=== PATIENT | female | born 1990 | race Caucasian/White ===

== ENCOUNTER 2016-07-30 12:40 | Outpatient (CLI) | payer OTHER ==
[~2016-07-30] VITALS: Ht 154.9 cm; Wt 71.7 kg
[2016-07-30 13:03] VITALS: BP 132/83
[2016-07-30] MEDS ORDERED: PREN1TAB86 PO (13:29)
[2016-07-30 13:30] VITALS: BP 110/75
--- NOTE | 2016-07-31 10:13 | Physician Query-Final Dx ---
PADMA DOMINGUEZ 07/31/16 1013: Clinic Account Progress/Dx Physician Query: Please give diagnosis Date of Service July 30, 2016 at 12:40 ALEJANDRINA GREGORY DO 07/31/16 1204: Clinic Account Progress/Dx DIAGNOSIS: Diagnosis 39 week IUP Vaginal discharge PADMA DOMINGUEZ July 31, 2016 10:13 ALEJANDRINA GREGORY DO July 31, 2016 12:04
[2016-07-31] MEDS ORDERED: ACET1TAB43 PO (18:25)
[2016-07-31] MEDS ORDERED: IBUP-1773 PO (18:25)
[2016-07-31] MEDS ORDERED: FERR-74 PO (18:25)
[2016-07-31] MEDS ORDERED: DOCU100C37 PO (18:25)
== END 2016-07-30 14:00 | disposition home or self-care (01) ==
LOC: WSo 12:40 → LDRP 12:41 → WSo 14:00
PROVIDERS: ATTEND Obstetrics & Gynecology
DX: N89.8 Other specified noninflammatory disorders of vagina (principal); Z3A.39 39 weeks gestation of pregnancy
CPT/HCPCS: 99213

== ENCOUNTER 2016-07-31 06:16 | Inpatient (IN) | payer OTHER ==
[~2016-07-31] VITALS: Ht 154.9 cm; Wt 71.7 kg
[2016-07-31] VITALS (41 sets, daily range): BP systolic 95–151; BP diastolic 52–93
[~2016-07-31 06:16] MED LIST: PREN1TAB86 PO
[2016-07-31] MEDS: CATHETER FLUSH 10 ML SYR IV SCH ×2 (07:30→10:30)
[2016-07-31] MEDS: D5 LR IV SOLUTION 1,000 ML IV SCH ×3 (07:30→23:52)
[2016-07-31] MEDS ORDERED: LIDOCAINE/EPI 1%-1:200,000 (XYLOCAINE) 30 ML VIAL INJ PRN (07:45)
[2016-07-31 08:07] LABS: BASOPHILS % (AUTO) 0 % (0-10); EOSINOPHILS # (AUTO) 0.1 10^3/uL (0.0-0.3); EOSINOPHILS % (AUTO) 0 % (0-10); LYMPHOCYTES # (AUTO) 1.9 X 10^3 (1.0-4.0); LYMPHOCYTES % (AUTO) 10 % (12-44); MEAN CORPUSCULAR HEMOGLOBIN 30 PG (25-34); MEAN CORPUSCULAR HGB CONC 34 G/DL (32-36); MEAN CORPUSCULAR VOLUME 88 FL (80-99); MEAN PLATELET VOLUME 11.6 FL (7.4-10.4); MONOCYTES # (AUTO) 0.9 X 10^3 (0.0-1.0); MONOCYTES % (AUTO) 5 % (0-12); NEUTROPHILS # (AUTO) 16.5 X 10^3 (1.8-7.8); NEUTROPHILS % (AUTO) 85 % (42-75); PLATELET COUNT 206 10^3/uL (130-400); RED BLOOD COUNT 4.33 10^6/uL (4.35-5.85); RED CELL DISTRIBUTION WIDTH 13.8 % (10.0-14.5); WHITE BLOOD COUNT 19.3 10^3/uL (4.3-11.0)
[2016-07-31 08:40] LABS: BAND NEUTROPHILS 4 %; BASOPHILS % (MANUAL) 0 %; EOSINOPHILS % (MANUAL) 0 %; LYMPHOCYTES % (MANUAL) 14 %; NEUTROPHILS % (MANUAL) 76 %
--- NOTE | 2016-07-31 08:43 | History & Physical-OB ---
OB - Chief Complaint & HPI Date Date of Admission: Date of Admission: July 31, 2016 at 07:10 Chief Complaint/History OB-Reason for Admission/Chief: Onset of Labor Hx : 1 Hx Para: 0 Expected Date of Delivery: July 31, 2016 Gestational Age in Weeks: 40 Admission Nurse Assessment Rev: Yes History of Labs A pos antibody neg RI RPR NR HIV NR HBsAg NR GC neg GBS neg Allergies and Home Medications Allergies Coded Allergies: No Known Drug Allergies (Unverified , 07/31/16) Home Medications Vit W-Ca,Fe,FA(<1 mg) 1 Each Tablet, 1 TAB PO DAILY, (Reported) OB - History Hx of Present Care: Yes Ultrasounds: Normal mid trimester US Obstetrical Complications: None Medical Complications: None Obstetrical History Hx : 1 Hx Para: 0 Delivery History Adverse Rxn to Tranfusion: No Patient Past Medical History n/a Social History/Family History HIV/AIDS: No Recent Infectious Disease Expo: No Sexually Transmitted Disease: No Alcohol Use: Denies Use Recreational Drug Use: No OB - Admission Exam Physical Exam Vitals: Vital Signs 07/31/16 06:37 Temp 98.2 Pulse 84 Resp 16 B/P (MAP) 122/79 O2 Delivery Room Air HEENT: NCAT Heart: Rhythm Normal Lungs: Clear Abdomen: Gravid Extremities: Normal Reflexes: Normal Cervical Dilatation: 4cm Effacement: 75% Station: -1 Membranes: Intact Heart Rate: 130's Accelerations: Accelerations Present Decelerations: No Decelerations Short Term Variability: Present Berry Planter Variability: Average (6-25) Contractions on Admission: 6-10 Minutes Apart Intensity: Moderate Labs Laboratory Tests Test 07/31/16 07:56 Range/Units White Blood Count 19.3 H 4.3-11.0 10^3/uL Red Blood Count 4.33 L 4.35-5.85 10^6/uL Hemoglobin 12.9 11.5-16.0 G/DL Hematocrit 38 35-52 % Mean Corpuscular Volume 88 80-99 FL Mean Corpuscular Hemoglobin 30 25-34 PG Mean Corpuscular Hemoglobin Concent 34 32-36 G/DL Red Cell Distribution Width 13.8 10.0-14.5 % Platelet Count 206 130-400 10^3/uL Mean Platelet Volume 11.6 H 7.4-10.4 FL Neutrophils (%) (Auto) 85 H 42-75 % Lymphocytes (%) (Auto) 10 L 12-44 % Monocytes (%) (Auto) 5 0-12 % Eosinophils (%) (Auto) 0 0-10 % Basophils (%) (Auto) 0 0-10 % Neutrophils # (Auto) 16.5 H 1.8-7.8 X 10^3 Lymphocytes # (Auto) 1.9 1.0-4.0 X 10^3 Monocytes # (Auto) 0.9 0.0-1.0 X 10^3 Eosinophils # (Auto) 0.1 0.0-0.3 10^3/uL Basophils # (Auto) 0.0 0.0-0.1 10^3/uL Neutrophils % (Manual) 76 % Lymphocytes % (Manual) 14 % Monocytes % (Manual) 6 % Eosinophils % (Manual) 0 % Basophils % (Manual) 0 % Band Neutrophils 4 % Blood Morphology Comment NORMAL OB - Assessment/Plan/Diagnosis Assessment Assessment: active labor Plan Plan: Expectant Management Discharge Diagnosis Diagnosis: 26 yo @ 40 weeks Active labor GBS neg ALEJANDRINA GREGORY DO July 31, 2016 08:43
[2016-07-31] MEDS ORDERED: LACTATED RINGERS 1,000 ML IV ONE ×2 (12:13→13:26)
[2016-07-31] MEDS ORDERED: HYDROmorphone (DILAUDID) 2 MG/ML VIAL IVP NR (12:15)
[2016-07-31] MEDS ORDERED: fentaNYL INJECTION 100 MCG/2 ML AMP ONE (12:19)
[2016-07-31] MEDS ORDERED: BUPIVACAINE 0.25% 30 ML (SENSORCAINE) VIAL ONE (12:19)
[2016-07-31] MEDS ORDERED: SUFENTA 0.6MCG/ML BUPIVA 0.125 100 ML ONE (12:20)
[2016-07-31] MEDS ORDERED: EPIDURAL (SUFENTA 0.6MCG/ML BUPIVA 0.125%) 100 ML BAG EPI SCH (13:30)
[2016-07-31] MEDS ORDERED: BUPIVACAINE 0.25% 30 ML (SENSORCAINE) VIAL INJ ONE (13:30)
[2016-07-31] MEDS ORDERED: NALOXONE 0.4 MG/ML 1 ML (NARCAN) VIAL IV PRN (13:30)
[2016-07-31] MEDS ORDERED: CATHETER FLUSH 10 ML SYR IV PRN (13:30)
[2016-07-31] MEDS ORDERED: diphenhydrAMINE 50 MG/ML INJ (BENADRYL) IV PRN (13:30)
[2016-07-31] MEDS ORDERED: ONDANSETRON 4 MG/2 ML (SDV) Z0FRAN IV PRN (13:30)
[2016-07-31] MEDS ORDERED: fentaNYL INJECTION 100 MCG/2 ML AMP INJ ONE (13:30)
[2016-07-31] MEDS ORDERED: OXYTOCIN/NORMAL SALINE 500 ML IV ONE (14:14)
[2016-07-31] MEDS ORDERED: OXYTOCIN/NORMAL SALINE 500 ML IV SCH (18:20)
--- NOTE | 2016-07-31 18:23 | Discharge Inst-Women's Service ---
Discharge Inst-Women's Serv Depart Medication/Instructions New, Converted or Re-Newed RX: RX on Chart Consults/Follow Up Additional Follow Up: Yes Orders/Referrals Dr. Gregory 6 weeks follow up Activity Activity: Activity as Tolerated Driving Instructions: No Driving for 1 Week NO SMOKING: NO SMOKING Nothing Inside Vagina: No Douching, No [place], No Tampons Diet Discharge Diet: No Restrictions Symptoms to Report to : Bleeding Excessive, Pain Increased, Fever Over 101 Degrees F, Vaginal Bleeding Increase, Questions/Concerns For Any Problems or Questions: Contact Your Physician Skin/Wound Care Bathing Instructions: Shower (x 2 weeks) ALEJANDRINA GREGORY DO July 31, 2016 18:23
[2016-07-31] MEDS ORDERED: ACET1TAB43 PO (18:25)
[2016-07-31] MEDS ORDERED: FERR-74 PO (18:25)
[2016-07-31] MEDS ORDERED: IBUP-1773 PO (18:25)
[2016-07-31] MEDS ORDERED: DOCU100C37 PO (18:25)
--- NOTE | 2016-07-31 18:28 | OB Labor & Delivery Record ---
L&D History Date of Service Date of Service: July 31, 2016 History Expected Date of Delivery: July 31, 2016 Gestational Age in Weeks: 40 Hx : 1 Hx Para: 0 Complications Events: Routine care Operative Indications (Cesarea: N/A-Vaginal Delivery Intrapartal Events: None L&D Stage1 Monitors and Tracing Monitor Mode: External Heart Rate: 135 Monitor Decelerations: None Station: 0 Agronomy Location Manager Variability: Average (6-10) Short Term Variability: Present Presentation: Vertex Vital Signs VS - Last 72 Hours, by Label 07/31/16 07/31/16 07/31/16 07/31/16 06:37 07:30 08:00 08:30 Temp 98.2 97.7 Pulse 84 98 96 94 Resp 16 18 18 18 B/P (MAP) 122/79 124/72 Pulse Ox 98 100 O2 Delivery Room Air Room Air Room Air Room Air 07/31/16 07/31/16 07/31/16 07/31/16 09:00 10:00 10:30 11:00 Temp 98.6 Pulse 100 78 92 96 Resp 18 18 18 18 B/P (MAP) 119/72 115/77 118/79 116/73 Pulse Ox 100 O2 Delivery Room Air Room Air Room Air Room Air 07/31/16 07/31/16 07/31/16 07/31/16 11:30 12:30 12:35 12:41 Temp 97.7 Pulse 101 100 83 113 Resp 18 18 18 18 B/P (MAP) 121/93 119/68 109/60 127/84 Pulse Ox 98 O2 Delivery Room Air Room Air Room Air Room Air 07/31/16 07/31/16 07/31/16 07/31/16 12:46 12:52 12:54 13:00 Temp 98.6 Pulse 111 114 104 96 Resp 18 18 18 18 B/P (MAP) 127/72 114/67 119/68 99/54 Pulse Ox 98 98 97 98 O2 Delivery Room Air Room Air Room Air Room Air 07/31/16 07/31/16 07/31/16 07/31/16 13:15 13:30 13:45 14:00 Pulse 93 81 77 75 Resp 18 18 18 18 B/P (MAP) 95/52 107/65 109/73 Pulse Ox 99 100 100 100 O2 Delivery Room Air Room Air Room Air Room Air 07/31/16 07/31/16 07/31/16 07/31/16 14:15 14:30 14:45 15:00 Temp 97.2 Pulse 82 78 88 91 Resp 18 18 18 18 B/P (MAP) 111/68 111/74 126/84 119/70 Pulse Ox 100 98 100 100 O2 Delivery Room Air Room Air Room Air Room Air 07/31/16 07/31/16 07/31/16 07/31/16 15:15 15:30 15:45 16:00 Temp 99.0 Pulse 88 95 97 97 Resp 18 18 18 18 B/P (MAP) 122/72 119/75 121/76 109/73 Pulse Ox 100 100 100 100 O2 Delivery Room Air Room Air Room Air Room Air 07/31/16 07/31/16 16:15 16:30 Temp 99.0 Pulse 86 109 Resp 18 18 B/P (MAP) 109/73 112/79 Pulse Ox 100 100 O2 Delivery Room Air Room Air Rupture of Membranes Amniotic Membrane Rupture Time: 1207 Amniotic Membrane Fluid Desc.: Clear Vaginal Bleeding Description: Normal Show Induction/Anesthesia Epidural Cath Placement - Time: 1252 Progress/Notes Patient progressed spontaneously to complete without augmentation L&D Stage2 Stage Two Stage II Date: July 31, 2016 Monitors and Tracing Monitor Mode: External Heart Rate: 135 Monitor Decelerations: None Agronomy Location Manager Variability: Average (6-10) Short Term Variability: Present Position: Right Occiput Anterior Presentation: Vertex Cord Descript/Complications Cord Vessel Description: 3 Vessels Delivery Type Delivery Method: Spontaneous Vaginal Anterior Shoulder: Right Episiotomy/Perineal Laceration Laceraction(s)/Extensions: Yes Episiotomy Description: Right Mediolateral Location Modifier: Right Degree (describe repair) RML repaired using 3-0 and 2-0 vicryl Condition of Delivery 1 minute Comment: 8 5 minute Comment: 9 Notes Live female infant weight 6lbs 13 oz Condition of Condition of : Living Exam: No Observed Abnormalities Resuscitation Resuscitation: N/A - Spontaneous Resp L&D Stage3 Stage Three Stage III Date: July 31, 2016 Pictocin Pitocin Administration Comment: 30 mu wide open after delivery of placenta Placenta Delivery Placenta Delivery: Spontaneous Delivery Summary Summary blood loss >1000ml: No Vaginal blood loss >500ml: No 350 mL Attending at delivery: Alejandrina Gregory DO Condition of Delivery Examined: Cervix Examined, Uterus Explored Post Hemorrhage: No Condition of Mother stable Condition of Infant (s) stable ALEJANDRINA GREGORY DO July 31, 2016 18:28
[2016-07-31] MEDS ORDERED: TETANUS,DIPTH,PERTUSS P/F (BOOSTRIX) 0.5 ML VIAL IM ONE (18:30)
[2016-07-31] MEDS ORDERED: BENZOCAINE/MENTHOL (DERMOPLAST) 56 ML CAN TP PRN (18:30)
[2016-07-31] MEDS ORDERED: APAP 300 MG/CODEINE 30 MG (TYLENOL #3) TAB PO PRN (18:30)
[2016-07-31] MEDS ORDERED: WITCH HAZEL(TUCKS) 40 EA JAR TOP PRN (18:30)
[2016-07-31] MEDS ORDERED: DIBUCAINE (NUPERCAINAL) 1% OINT 30 GM TOP PRN (18:30)
[2016-07-31] MEDS ORDERED: MEASLES,MUMPS,RUBELLA 1 EA INJ SQ ONE (18:30)
[2016-07-31] MEDS: DOCUSATE SODIUM 100 MG (COLACE) CAP PO SCH (22:07)
[2016-07-31] MEDS: IBUPROFEN 600 MG (MOTRIN) TAB PO SCH ×2 (22:07→23:52)
[2016-08-01] MEDS: IBUPROFEN 600 MG (MOTRIN) TAB PO SCH ×3 (03:51→18:00)
[2016-08-01] MEDS: CATHETER FLUSH 10 ML SYR IV SCH ×4 (03:54→14:15)
[2016-08-01 04:28] VITALS: BP 110/78
[2016-08-01 06:03] LABS: BASOPHILS % (AUTO) 0 % (0-10); EOSINOPHILS % (AUTO) 0 % (0-10); LYMPHOCYTES # (AUTO) 2.3 X 10^3 (1.0-4.0); LYMPHOCYTES % (AUTO) 12 % (12-44); MEAN CORPUSCULAR HEMOGLOBIN 30 PG (25-34); MEAN CORPUSCULAR HGB CONC 34 G/DL (32-36); MEAN CORPUSCULAR VOLUME 90 FL (80-99); MEAN PLATELET VOLUME 11.4 FL (7.4-10.4); MONOCYTES # (AUTO) 1.3 X 10^3 (0.0-1.0); MONOCYTES % (AUTO) 7 % (0-12); NEUTROPHILS # (AUTO) 15.1 X 10^3 (1.8-7.8); NEUTROPHILS % (AUTO) 80 % (42-75); PLATELET COUNT 173 10^3/uL (130-400); RED BLOOD COUNT 2.85 10^6/uL (4.35-5.85); RED CELL DISTRIBUTION WIDTH 13.7 % (10.0-14.5); WHITE BLOOD COUNT 18.8 10^3/uL (4.3-11.0)
[2016-08-01 08:00] VITALS: BP 102/68
[2016-08-01] MEDS ORDERED: FERROUS SULF 325 MG (IRON) TAB PO SCH (09:00)
[2016-08-01] MEDS: PRENATAL VITAMIN 1 EA TAB PO SCH (09:16)
[2016-08-01] MEDS: DOCUSATE SODIUM 100 MG (COLACE) CAP PO SCH ×2 (09:17→21:12)
--- NOTE | 2016-08-01 09:33 | Postpartum Progress Note ---
Note Note Day # 1 Subjective: Patient is without complaints. Ambulating, voiding. Tolerating a regular diet without nausea or vomiting. Normal lochia. Pain is well controlled with oral pain medications. Breast feeding. Objective: VS - Last 72 Hours, by Label 07/31/16 07/31/16 07/31/16 07/31/16 06:37 07:30 08:00 08:30 Temp 98.2 97.7 Pulse 84 98 96 94 Resp 16 18 18 18 B/P (MAP) 122/79 124/72 Pulse Ox 98 100 O2 Delivery Room Air Room Air Room Air Room Air 07/31/16 07/31/16 07/31/16 07/31/16 09:00 10:00 10:30 11:00 Temp 98.6 Pulse 100 78 92 96 Resp 18 18 18 18 B/P (MAP) 119/72 115/77 118/79 116/73 Pulse Ox 100 O2 Delivery Room Air Room Air Room Air Room Air 07/31/16 07/31/16 07/31/16 07/31/16 11:30 12:30 12:35 12:41 Temp 97.7 Pulse 101 100 83 113 Resp 18 18 18 18 B/P (MAP) 121/93 119/68 109/60 127/84 Pulse Ox 98 O2 Delivery Room Air Room Air Room Air Room Air 07/31/16 07/31/16 07/31/16 07/31/16 12:46 12:52 12:54 13:00 Temp 98.6 Pulse 111 114 104 96 Resp 18 18 18 18 B/P (MAP) 127/72 114/67 119/68 99/54 Pulse Ox 98 98 97 98 O2 Delivery Room Air Room Air Room Air Room Air 07/31/16 07/31/16 07/31/16 07/31/16 13:15 13:30 13:45 14:00 Pulse 93 81 77 75 Resp 18 18 18 18 B/P (MAP) 95/52 107/65 109/73 Pulse Ox 99 100 100 100 O2 Delivery Room Air Room Air Room Air Room Air 07/31/16 07/31/16 07/31/16 07/31/16 14:15 14:30 14:45 15:00 Temp 97.2 Pulse 82 78 88 91 Resp 18 18 18 18 B/P (MAP) 111/68 111/74 126/84 119/70 Pulse Ox 100 98 100 100 O2 Delivery Room Air Room Air Room Air Room Air 07/31/16 07/31/16 07/31/16 07/31/16 15:15 15:30 15:45 16:00 Temp 99.0 Pulse 88 95 97 97 Resp 18 18 18 18 B/P (MAP) 122/72 119/75 121/76 109/73 Pulse Ox 100 100 100 100 O2 Delivery Room Air Room Air Room Air Room Air 07/31/16 07/31/16 07/31/16 07/31/16 16:15 16:30 16:45 17:00 Temp 99.0 Pulse 86 109 93 98 Resp 18 18 18 18 B/P (MAP) 109/73 112/79 112/71 127/82 Pulse Ox 100 100 100 100 O2 Delivery Room Air Room Air Room Air Room Air 07/31/16 07/31/16 07/31/16 07/31/16 17:15 17:30 17:45 18:00 Temp 97.6 Pulse 104 114 97 101 Resp 18 18 18 18 B/P (MAP) 131/77 118/71 119/73 110/72 Pulse Ox 100 100 O2 Delivery Room Air Room Air Room Air Room Air 07/31/16 07/31/16 07/31/16 07/31/16 18:15 18:30 18:45 19:00 Temp 99.5 Pulse 126 117 111 96 Resp 18 18 18 18 B/P (MAP) 111/74 104/85 151/55 96/55 O2 Delivery Room Air Room Air Room Air Room Air 07/31/16 07/31/16 07/31/16 07/31/16 19:15 19:45 22:00 23:45 Temp 99.9 100.2 98.6 Pulse 98 106 114 105 Resp 18 18 18 18 B/P (MAP) 99/62 104/68 111/76 112/71 O2 Delivery Room Air Room Air Room Air Room Air 08/01/16 08/01/16 04:28 08:00 Temp 98.5 98.6 Pulse 106 82 Resp 14 14 B/P (MAP) 110/78 102/68 Pulse Ox 98 98 O2 Delivery Room Air Room Air Physical Exam: General - Alert and oriented, no apparent distress Abdomen - Soft, appropriately tender to palpation, non-distended, fundus firm at umbilicus Extremities - no edema, negative Vinay's bilaterally Laboratory Tests Test 08/01/16 05:31 Range/Units White Blood Count 18.8 H 4.3-11.0 10^3/uL Red Blood Count 2.85 L 4.35-5.85 10^6/uL Hemoglobin 8.6 #L 11.5-16.0 G/DL Hematocrit 26 L 35-52 % Mean Corpuscular Volume 90 80-99 FL Mean Corpuscular Hemoglobin 30 25-34 PG Mean Corpuscular Hemoglobin Concent 34 32-36 G/DL Red Cell Distribution Width 13.7 10.0-14.5 % Platelet Count 173 130-400 10^3/uL Mean Platelet Volume 11.4 H 7.4-10.4 FL Neutrophils (%) (Auto) 80 H 42-75 % Lymphocytes (%) (Auto) 12 12-44 % Monocytes (%) (Auto) 7 0-12 % Eosinophils (%) (Auto) 0 0-10 % Basophils (%) (Auto) 0 0-10 % Neutrophils # (Auto) 15.1 H 1.8-7.8 X 10^3 Lymphocytes # (Auto) 2.3 1.0-4.0 X 10^3 Monocytes # (Auto) 1.3 H 0.0-1.0 X 10^3 Eosinophils # (Auto) 0.0 0.0-0.3 10^3/uL Basophils # (Auto) 0.0 0.0-0.1 10^3/uL Assessment: 26 y/o post- day # 1, status post spontaneous vaginal delivery. Recovering well, hemodynamically stable Acute blood loss anemia Hgb 8.6 Plan: Routine care. Encourage breast feeding. Encourage ambulation. Ferrous sulfate supplementation ordered TID. Plan for discharge tomorrow. Vitals - Labs Vital Signs - I&O Vital Signs Date Time Temp Pulse Resp B/P (MAP) Pulse Ox O2 Delivery O2 Flow Rate FiO2 08/01/16 08:00 98.6 82 14 102/68 98 Room Air 08/01/16 04:28 98.5 106 14 110/78 98 Room Air 07/31/16 23:45 98.6 105 18 112/71 Room Air 07/31/16 22:00 100.2 114 18 111/76 Room Air 07/31/16 19:45 99.9 106 18 104/68 Room Air 07/31/16 19:15 98 18 99/62 Room Air 07/31/16 19:00 96 18 96/55 Room Air 07/31/16 18:45 111 18 151/55 Room Air 07/31/16 18:30 117 18 104/85 Room Air 07/31/16 18:15 99.5 126 18 111/74 Room Air 07/31/16 18:00 101 18 110/72 Room Air 07/31/16 17:45 97.6 97 18 119/73 Room Air 07/31/16 17:30 114 18 118/71 100 Room Air 07/31/16 17:15 104 18 131/77 100 Room Air 07/31/16 17:00 98 18 127/82 100 Room Air 07/31/16 16:45 93 18 112/71 100 Room Air 07/31/16 16:30 109 18 112/79 100 Room Air 07/31/16 16:15 99.0 86 18 109/73 100 Room Air 07/31/16 16:00 99.0 97 18 109/73 100 Room Air 07/31/16 15:45 97 18 121/76 100 Room Air 07/31/16 15:30 95 18 119/75 100 Room Air 07/31/16 15:15 88 18 122/72 100 Room Air 07/31/16 15:00 91 18 119/70 100 Room Air 07/31/16 14:45 88 18 126/84 100 Room Air 07/31/16 14:30 97.2 78 18 111/74 98 Room Air 07/31/16 14:15 82 18 111/68 100 Room Air 07/31/16 14:00 75 18 109/73 100 Room Air 07/31/16 13:45 77 18 100 Room Air 07/31/16 13:30 81 18 107/65 100 Room Air 07/31/16 13:15 93 18 95/52 99 Room Air 07/31/16 13:00 98.6 96 18 99/54 98 Room Air 07/31/16 12:54 104 18 119/68 97 Room Air 07/31/16 12:52 114 18 114/67 98 Room Air 07/31/16 12:46 111 18 127/72 98 Room Air 07/31/16 12:41 113 18 127/84 98 Room Air 07/31/16 12:35 83 18 109/60 Room Air 07/31/16 12:30 100 18 119/68 Room Air 07/31/16 11:30 97.7 101 18 121/93 Room Air 07/31/16 11:00 96 18 116/73 Room Air 07/31/16 10:30 92 18 118/79 Room Air 07/31/16 10:00 98.6 78 18 115/77 Room Air I & O 08/01/16 07:00 Intake Total 3500 ml Output Total 600 ml Balance 2900 ml Labs Laboratory Tests 08/01/16 05:31: White Blood Count 18.8H, Red Blood Count 2.85L, Hemoglobin 8.6#L, Hematocrit 26L , Mean Corpuscular Volume 90, Mean Corpuscular Hemoglobin 30, Mean Corpuscular Hemoglobin Concent 34, Red Cell Distribution Width 13.7, Platelet Count 173, Mean Platelet Volume 11.4H, Neutrophils (%) (Auto) 80H, Lymphocytes (%) (Auto) 12, Monocytes (%) (Auto) 7, Eosinophils (%) (Auto) 0, Basophils (%) (Auto) 0, Neutrophils # (Auto) 15.1H, Lymphocytes # (Auto) 2.3, Monocytes # (Auto) 1.3H, Eosinophils # (Auto) 0.0, Basophils # (Auto) 0.0 FATEMEH LO MD August 01, 2016 09:33
[2016-08-01 12:00] VITALS: BP 110/64
[2016-08-01] MEDS: FERROUS SULF 325 MG (IRON) TAB PO SCH ×2 (14:15→18:00)
--- NOTE | 2016-08-01 15:19 | Anesthesia-Regional Post-Op ---
Regional Patient Condition Mental Status: Alert, Oriented x3 Circulation: Same as Pre-Op Headache: Absent Sensation: Full Recovery Motor Block: Absent Post Op Complications Complications None Follow Up Care/Instructions Patient Instructions None needed. Anesthesia/Patient Condition Patient is doing well, no complaints, stable vital signs, no apparent adverse anesthesia problems. No complications reported per nursing. D/C home per [facility] Criteria: No JOHNNY ANDERSON CRNA August 01, 2016 15:19
[2016-08-01 16:00] VITALS: BP 112/77
[2016-08-01 20:30] VITALS: BP 96/63
[2016-08-02] VITALS: BP 95/57
[2016-08-02] MEDS: IBUPROFEN 600 MG (MOTRIN) TAB PO SCH ×3 (00:34→12:13)
[2016-08-02 09:30] VITALS: BP 115/76
[2016-08-02] MEDS: PRENATAL VITAMIN 1 EA TAB PO SCH (09:45)
[2016-08-02] MEDS: DOCUSATE SODIUM 100 MG (COLACE) CAP PO SCH (09:45)
[2016-08-02] MEDS: FERROUS SULF 325 MG (IRON) TAB PO SCH ×2 (09:45→12:13)
--- NOTE | 2016-08-02 12:53 | Progress Note-Standard ---
Standard Progress Note Progress Notes/Assess & Plan Progress/Assessment & Plan Subjective: Patient is without complaints. Ambulating, voiding. Tolerating a regular diet without nausea or vomiting. Normal lochia. Pain is well controlled with oral pain medications. Breast feeding. Objective: Vital Sign - Last 24 Hours 08/01/16 08/01/16 08/02/16 16:00 20:30 00:00 Temp 98.2 98.7 98.2 Pulse 102 101 103 Resp 12 16 B/P (MAP) 112/77 96/63 95/57 Pulse Ox 98 95 98 O2 Delivery Room Air Room Air Room Air Physical Exam: General - Alert and oriented, no apparent distress Abdomen - Soft, appropriately tender to palpation, non-distended, fundus firm at umbilicus Extremities - no edema, negative Vinay's bilaterally Assessment: 26 y/o post- day # 2, status post spontaneous vaginal delivery. Recovering well, hemodynamically stable Acute blood loss anemia Hgb 8.6 Plan: Routine care. Encourage breast feeding. Encourage ambulation. Ferrous sulfate supplementation ordered TID. Plan for discharge today. ALEJANDRINA GREGORY DO August 02, 2016 12:53 pm
== END 2016-08-02 15:25 | disposition home or self-care (01) | DRG 775 ==
LOC: WSo 06:16 → LDRP 06:17 → WSo 07:10 → LDRP 21:00
PROVIDERS: ADMIT Obstetrics & Gynecology; ATTEND Obstetrics & Gynecology
PROC: 10E0XZZ Delivery of Products of Conception, External Approach (ICD-10-PCS; principal; 2016-07-31)
PROC: 0W8NXZZ Division of Female Perineum, External Approach (ICD-10-PCS; 2016-07-31)
DX: O90.81 Anemia of the puerperium (principal); D62 Acute posthemorrhagic anemia; Z37.0 Single live birth; Z3A.40 40 weeks gestation of pregnancy
CPT/HCPCS: 36415; 85007; 85025; 85027; 86850; 86900; 86901; 99212

== ENCOUNTER → 2021-04-24 | Outpatient (CLI) | payer OTHER ==
[~2021-04-24] MED LIST changes: +ACET1TAB43 PO; +DOCU100C37 PO; +FERR325T18 PO; +IBUP-1773 PO
--- NOTE | 2021-04-24 14:04 | Diagnostic Imaging Report ---
PROCEDURE: Pelvic comp/transvaginal sonogram. TECHNIQUE: Complete transabdominal and transvaginal pelvic ultrasound was performed. In addition, limited pelvic Doppler was performed. INDICATION: Pelvic pain. FINDINGS: The uterus is anteverted measuring 7.1 x 4.4 x 3.1 cm. The endometrium is 8 mm in thickness. No myometrial mass is detected. There is a cervical nabothian cyst. The right ovary measures 3.2 x 2.5 x 1.9 cm and the left ovary measures 4.7 x 3.2 x 3.2 cm. Both ovaries contain multiple follicles. There is a dominant follicle or cyst involving the left ovary measuring 2.4 x 2.8 cm. There is blood flow to both ovaries. No free fluid is identified. IMPRESSION: 2.8 cm left ovarian cyst. The study is otherwise unremarkable. Dictated by: Dictated on workstation # [id number]
== END ==
LOC: RAD 13:00
PROVIDERS: ATTEND Obstetrics & Gynecology
DX: N83.202 Unspecified ovarian cyst, left side (principal)
CPT/HCPCS: 76830; 76856